=== PATIENT | female | born 1990 | race Caucasian/White ===

== ENCOUNTER 2018-06-22 23:19 | Emergency (ER) | payer MEDICAID ==
[~2018-06-22] VITALS: Ht 162.6 cm; Wt 59.0 kg
[2018-06-22 23:24] VITALS: BP 99/46
== END 2018-06-23 00:27 | disposition left against medical advice (07) ==
LOC: EDBD 23:19 → ER 23:19
DX: Z53.21 Procedure and treatment not carried out due to patient leaving prior to being seen by health care provider (principal)

== ENCOUNTER 2019-04-06 18:21 | Emergency (ER) | payer MEDICAID | END 2019-04-06 22:34 | disposition left against medical advice (07) | LOC: ER 22:31 | DX: R11.10 Vomiting, unspecified (principal); Z53.21 Procedure and treatment not carried out due to patient leaving prior to being seen by health care provider ==